=== PATIENT | female | born 1940 | race Hispanic/Latino ===

== ENCOUNTER 2018-10-20 19:10 | Observation (INO) | payer OTHER, MEDICARE ==
[~2018-10-20] VITALS: Ht 152.4 cm; Wt 67.6 kg
[2018-10-20 19:48] LABS: BASOPHILS % (AUTO) 0.6 % (0.0-5.0); EOSINOPHILS % (AUTO) 1.8 % (0.0-8.0); HEMATOCRIT 38.1 % (36-48); LYMPHOCYTES % (AUTO) 36.5 % (21.0-51.0); MEAN CORPUSCULAR HEMOGLOBIN 35.4 pg (27.0-33.0); MEAN CORPUSCULAR HGB CONC 34.9 g/dL (32.0-36.0); MEAN CORPUSCULAR VOLUME 101.6 fL (79-99); MONOCYTES % (AUTO) 8.7 % (3.0-13.0); NEUTROPHILS % (AUTO) 52.4 % (40.0-77.0); NUCLEATED RED BLOOD CELLS 0.1 % (0.0-0.19); PLATELET COUNT (AUTO) 173 K/uL (130-400); RED BLOOD CELL COUNT(AUTO) 3.75 MIL/uL (4.00-5.50); RED CELL DISTRIBUTION WIDTH 12.9 % (11.0-15.5); WHITE BLOOD COUNT (AUTO) 5.8 K/uL (4.8-10.8)
[2018-10-20 19:58] LABS: CREATININE 1.2 mg/dL (0.5-1.5); POTASSIUM 4.2 mmol/L (3.5-5.1)
[2018-10-20 20:01] LABS: APPEARANCE,URINE Clear (CLEAR); BILIRUBIN,URINE Negative (NEGATIVE); COLOR,URINE Yellow (YELLOW); GLUCOSE, URINE (UA) >=1000 mg/dL (NEGATIVE); KETONES,URINE Negative (NEGATIVE); LEUKOCYTE ESTERASE ,URINE Small (NEGATIVE); NITRATE,URINE Negative (NEGATIVE); OCCULT BLOOD,URINE Trace (NEGATIVE); PROTEIN,URINE Negative (NEGATIVE)
[2018-10-20 20:01] LABS: INR 0.96 (0.85-1.15); PARTIAL THROMBOPLASTIN TIME 27.3 SEC (26.3-35.5); PROTHROMBIN TIME 10.1 SEC (9.6-11.6)
[2018-10-20 20:03] LABS: ALBUMIN 3.9 g/dL (3.5-5.0); BILIRUBIN,TOTAL 0.8 mg/dL (0.2-1.0)
[2018-10-20 20:16] LABS: RBC,URINE 0-1 /HPF (0-1)
[2018-10-20 20:17] LABS: BACTERIA,URINE Rare /HPF (None Seen); SQUAMOUS EPITHELIAL CELL,UR Rare /HPF (0-2)
[2018-10-21] MEDS ORDERED: ONDANSETRON HCL 4 MG/2 ML VIAL IV PRN
[2018-10-21] MEDS ORDERED: ACETAMINOPHEN 325 MG TAB PO PRN
[2018-10-21] MEDS ORDERED: MORPHINE SULFATE 2 MG/ML 1ML SYG IV PRN
[2018-10-21 00:10] LABS: CHOLESTEROL 140 mg/dL (<200); HDL CHOLESTEROL 116 mg/dL (35-85); LDL DIRECT 60 mg/dL (0-99); TRIGLYCERIDES 100 mg/dL (30-200)
--- NOTE | 2018-10-21 01:40 | NUR ---
RECEIVED PT FROM ER VIA STRETCHER, DX POSSIBLE TIA. APPEARS COMFORTABLE STATES SHE IS TIRED. DENIES PAIN. SPEECH CLEAR. [facility] [employer] AND LEG PUSHES STRONG. TELE READING ATRIAL FIB HR 100. ASSESSMENT COMPLETED AND DOCUMENTED. INFORMED PT AND HER DAUGHTER, NHAN THE PLAN OF CARE/ORDERS. VERBALIZED UNDERSTANDING.
[2018-10-21] MEDS ORDERED: PIOG15TA66 PO (01:59)
[2018-10-21] MEDS ORDERED: LISI-613 PO (01:59)
[2018-10-21] MEDS ORDERED: LEVO88TA7 PO (01:59)
[2018-10-21] MEDS ORDERED: LORA10TA7 PO (01:59)
[2018-10-21] MEDS ORDERED: ISOS30TA6 PO (01:59)
[2018-10-21] MEDS ORDERED: LEVE500T19 PO (01:59)
[2018-10-21] MEDS ORDERED: BACL10TA PO (01:59)
[2018-10-21] MEDS ORDERED: FURO20TA4 PO (01:59)
[2018-10-21] MEDS ORDERED: ATOR10 PO (01:59)
[2018-10-21] MEDS ORDERED: DIPH1TAB PO (01:59)
[2018-10-21] MEDS ORDERED: NIAC-8 PO (01:59)
[2018-10-21] MEDS ORDERED: METO50TA18 PO (01:59)
[2018-10-21] MEDS: CEFTRIAXONE SODIUM 1 GM IVP SCH (02:52)
[2018-10-21 03:04] VITALS: BP 109/69
[2018-10-21] MEDS: INSULIN HUMULIN R 100 UNIT/ML 3ML SQ SCH ×4 (05:36→21:54)
[2018-10-21 05:47] LABS: BASOPHILS % (AUTO) 0.8 % (0.0-5.0); EOSINOPHILS % (AUTO) 2.5 % (0.0-8.0); HEMATOCRIT 38.2 % (36-48); LYMPHOCYTES % (AUTO) 41.8 % (21.0-51.0); MEAN CORPUSCULAR HEMOGLOBIN 35.1 pg (27.0-33.0); MEAN CORPUSCULAR HGB CONC 34.4 g/dL (32.0-36.0); MEAN CORPUSCULAR VOLUME 101.9 fL (79-99); MONOCYTES % (AUTO) 7.5 % (3.0-13.0); NEUTROPHILS % (AUTO) 47.4 % (40.0-77.0); NUCLEATED RED BLOOD CELLS 0.1 % (0.0-0.19); PLATELET COUNT (AUTO) 153 K/uL (130-400); RED BLOOD CELL COUNT(AUTO) 3.75 MIL/uL (4.00-5.50); WHITE BLOOD COUNT (AUTO) 6.3 K/uL (4.8-10.8)
[2018-10-21 05:56] LABS: CREATININE 1.1 mg/dL (0.5-1.5); POTASSIUM 3.9 mmol/L (3.5-5.1)
[2018-10-21 07:42] VITALS: BP 124/61
[2018-10-21] MEDS: ASPIRIN 81MG TAB.CHEW PO SCH (08:25)
[2018-10-21] MEDS: ENOXAPARIN SODIUM 30 MG/0.3 ML SQ SCH (08:26)
[2018-10-21] MEDS: FAMOTIDINE 20MG TAB 20 MG TAB PO SCH (08:27)
[2018-10-21] MEDS: SODIUM CHLORIDE 0.9% 1000ML 1,000 ML IV SCH ×2 (11:11→19:45)
[2018-10-21 11:42] VITALS: BP 126/70
[2018-10-21 15:27] VITALS: BP 118/67
[2018-10-21] MEDS ORDERED: METOPROLOL TARTRATE 1 MG/ML 5ML VIAL IV SCH (16:15)
--- NOTE | 2018-10-21 17:36 | NUR ---
DC PLAN VISITED WITH PATIENT. PATIENT LIVES WITH DAUGHTER. INDEPENDENT ABLE TO PERFORM ADL'S. PATIENT HAS CANE. DAUGHTER IS PROVIDER NOT SURE HOW MANY HOURS. FEELS SAFE TO RETURN HOME. Addendum: 10/21/18 at 1738 by LISBET MOFFETT RN CM Amended: Links added.
--- NOTE | 2018-10-21 19:00 | NUR ---
Received bedside report,pt denies chestpain or any discomfort.Son to bedside.Pt. instructed to use call light for assistance.
[2018-10-21 19:38] VITALS: BP 129/60
[2018-10-21] MEDS: LEVETIRACETAM 500 MG TABLET PO SCH (20:27)
[2018-10-21] MEDS: METOPROLOL TARTRATE 50 MG TAB PO SCH (20:27)
[2018-10-21] MEDS: LISINOPRIL 20 MG TABLET PO SCH (20:27)
[2018-10-21] MEDS ORDERED: ATORVASTATIN CALCIUM 20 MG TABLET PO SCH (21:00)
[2018-10-22] MEDS: CEFTRIAXONE SODIUM 1 GM IVP SCH
[2018-10-22] MEDS: SODIUM CHLORIDE 0.9% 1000ML 1,000 ML IV SCH (00:05)
[2018-10-22 00:13] VITALS: BP 129/74
[2018-10-22 04:18] VITALS: BP 147/72
[2018-10-22 04:24] LABS: HEMATOCRIT 40.1 % (36-48); MEAN CORPUSCULAR HEMOGLOBIN 35.2 pg (27.0-33.0); MEAN CORPUSCULAR HGB CONC 34.6 g/dL (32.0-36.0); MEAN CORPUSCULAR VOLUME 101.8 fL (79-99); PLATELET COUNT (AUTO) 161 K/uL (130-400); RED BLOOD CELL COUNT(AUTO) 3.94 MIL/uL (4.00-5.50); RED CELL DISTRIBUTION WIDTH 12.9 % (11.0-15.5); WHITE BLOOD COUNT (AUTO) 6.4 K/uL (4.8-10.8)
[2018-10-22 04:29] LABS: HEMOGLOBIN A1C 6.8 % (4.0-6.0)
[2018-10-22 04:42] LABS: ALBUMIN 3.3 g/dL (3.5-5.0); BILIRUBIN,TOTAL 0.5 mg/dL (0.2-1.0); CREATININE 1.1 mg/dL (0.5-1.5); POTASSIUM 4.2 mmol/L (3.5-5.1)
[2018-10-22] MEDS ORDERED: LEVOTHYROXINE 88 MCG TABLET ONE (05:43)
[2018-10-22] MEDS: INSULIN HUMULIN R 100 UNIT/ML 3ML SQ SCH ×2 (06:21→11:30)
[2018-10-22] MEDS ORDERED: LEVOTHYROXINE 88 MCG TABLET PO SCH (07:30)
[2018-10-22 07:41] VITALS: BP 148/78
[2018-10-22] MEDS ORDERED: CLOPIDOGREL BISULFATE 75 MG TAB PO SCH (09:00)
[2018-10-22] MEDS ORDERED: ISOSORBIDE MONO 30MG TAB SR PO SCH (09:00)
[2018-10-22] MEDS ORDERED: NIACIN 500 MG SRTAB PO SCH (09:00)
[2018-10-22] MEDS: LEVETIRACETAM 500 MG TABLET PO SCH (09:00)
[2018-10-22] MEDS ORDERED: FUROSEMIDE 20 MG TABLET PO SCH (09:00)
[2018-10-22] MEDS ORDERED: LORATADINE 10 MG TABLET PO SCH (09:00)
[2018-10-22] MEDS: METOPROLOL TARTRATE 50 MG TAB PO SCH (09:25)
[2018-10-22] MEDS: LISINOPRIL 20 MG TABLET PO SCH (09:26)
[2018-10-22] MEDS: FAMOTIDINE 20MG TAB 20 MG TAB PO SCH (09:26)
[2018-10-22] MEDS: ASPIRIN 81MG TAB.CHEW PO SCH (09:26)
[2018-10-22] MEDS: ENOXAPARIN SODIUM 30 MG/0.3 ML SQ SCH (09:30)
[2018-10-22 11:51] VITALS: BP 141/84
--- NOTE | 2018-10-22 11:58 | NUR ---
RD Notification Primary Diagnosis: Possible TIA. Pt has a past medical history of HTN, DM, Hypothyroidism, Hyperlipidemia, CAD, and Afib. Current diet: CCD 75gm. Pt fair Po intake eating 50-75% of meals and has had recent weight loss of 12 pounds in the past 1.5 months as per family member, that is a 7% weight loss change indicating pt is at risk for malnutrition. LBM: 10/21. Skin is intact. Meds: Rocephin, Synthroid, Keppra, Prinivil, Lopressor, Lipitor, Pepcid, Lovenox, Humulin R, Zofran, Lasix, Niacin, Plavix. Labs: RBC 3.9, GFR 51, A1C 6.8, ALB 3.3, HDL 116. BMI is 29.2; classified as overweight. RD recommended to continue to monitor further weight loss, PO intake and albumin levels. Will continue to monitor and follow up as needed. Please notify RD if any nutritional concerns arise, thank you. Addendum: 10/22/18 at [address] RD Amended: Links added.
[2018-10-22] MEDS ORDERED: ASPI-1005 PO (12:07)
--- NOTE | 2018-10-22 12:34 | NUR ---
PT HAS BEEN CLEARED FOR DISCHARGE- I WENT IN ROOM TO GIVE INSTRUCTIONS BUT SHE WAS IN THE SHOWER
--- NOTE | 2018-10-22 13:06 | NUR ---
DISCHARGED HOME WITH DAUGHTER OSIRIS. NO ACUTE DISTRESS NOTED. PRINTED AND VERBAL INSTRUCTIONS GIVEN TO PT/FAMILY. VERBALIZE UNDERSTANDING. TO CAR VIA WHEELCHAIR
== END 2018-10-22 13:22 | disposition home or self-care (01) ==
LOC: EDH 19:10 → EDHIP 23:47 → 2DH 10-21 01:13
PROVIDERS: ADMIT Family Medicine; ATTEND Family Medicine
DX: M48.02 Spinal stenosis, cervical region (principal); E03.9 Hypothyroidism, unspecified; I25.10 Atherosclerotic heart disease of native coronary artery without angina pectoris; E11.9 Type 2 diabetes mellitus without complications; E78.5 Hyperlipidemia, unspecified; E78.00 Pure hypercholesterolemia, unspecified; G40.909 Epilepsy, unspecified, not intractable, without status epilepticus; I10 Essential (primary) hypertension; I48.91 Unspecified atrial fibrillation; N39.0 Urinary tract infection, site not specified; R29.702 NIHSS score 2; Z86.73 Personal history of transient ischemic attack (TIA), and cerebral infarction without residual deficits; Z95.1 Presence of aortocoronary bypass graft; Z79.899 Other long term (current) drug therapy
CPT/HCPCS: 36415 ×3; 70450; 70551; 71045; 72125; 72141; 80048; 80053 ×2; 80061; 81001; 82550; 82948 ×6; 83036; 84484; 85025 ×2; 85027; 85610; 85730; 87088; 93005; 93880; 96372 ×2; 96374; 96375; 96376; 99284; G0378 ×38; J0696 ×2; J1650 ×2; J1815 ×2; J3490; J7030 ×2